=== PATIENT | male | born 1940 ===

== ENCOUNTER 2016-09-27 10:11 | Emergency (ER) | payer MEDICARE ==
[2016-09-27 10:35] VITALS: BMI 41.0
[2016-09-27 10:36] VITALS: BP 115/70; PULSE 62; RESP 18; TEMP 98.4; O2SAT 98
[2016-09-27] MEDS ORDERED: Tmp-Smz 800 mg-160 mg DS Tab PO STA (10:51)
--- NOTE | 2016-09-27 10:54 | C.PDOC ---
History Of Present Illness 76 yr old male with PMHx of HTN and diabetes, presents to the ER with right> left eye lid swelling for the past 1 week. Patient attributes it to "sweeping the floor". Patient denies fever, vision changes, headache or rash. Time Seen by Provider: 09/27/16 10:45 Chief Complaint (Nursing): ENT Problem History Per: Patient History/Exam Limitations: no limitations Onset/Duration Of Symptoms: Days (1 week) Injury To Eye?: No Past Medical History Reviewed: Historical Data, Nursing Documentation, Vital Signs Vital Signs: Last Vital Signs Temp 98.4 F 09/27/16 10:36 Pulse 62 09/27/16 10:36 Resp 18 09/27/16 10:36 BP 115/70 09/27/16 10:36 Pulse Ox 98 09/27/16 10:55 - Medical History PMH: CHF, Diabetes, HTN, Hypercholesterolemia Surgical History: CABG (triple bypass 2004), Coronary Stent Family History: States: No Known Family Hx - Social History Hx Tobacco Use: No Hx Alcohol Use: No Hx Substance Use: No - Immunization History Hx Tetanus Toxoid Vaccination: Yes Hx Influenza Vaccination: Yes Hx Pneumococcal Vaccination: Yes Review Of Systems Except As Marked, All Systems Reviewed And Found Negative. Constitutional: Negative for: Fever Eyes: Positive for: Other (Right>Left eye lid swelling ). Negative for: Vision Change Skin: Negative for: Rash Neurological: Negative for: Headache Physical Exam - Physical Exam Appears: Well, Non-toxic, No Acute Distress Skin: Warm, Dry, No Rash Head: Atraumatic, Normacephalic Eye(s): bilateral: Other (No conjuntivial erythema. Right Eyelid - Mild erythema and swelling. Left Eyelid - Minimal erythema and swelling. No pain with extraocular movements. ) Chest: Symmetrical, No Tenderness Cardiovascular: Rhythm Regular, No Murmur Respiratory: Normal Breath Sounds, No Rales, No Rhonchi, No Stridor, No Wheezing Extremity: Normal ROM, No Swelling Neurological/Psych: Oriented x3, Normal Speech ED Course And Treatment O2 Sat by Pulse Oximetry: 98 Medical Decision Making Medical Decision Making: PLAN: * Bactrim PO eomi, no pain with eye movement conjuctiva clear. no clinical concern for orbital extention. advise out pt f/u and return precautions Disposition - Disposition Referrals: Angel Avilez [Staff Provider] - Dre Culver MD [Staff Provider] - Disposition: HOME/ ROUTINE Disposition Time: 11:00 Condition: STABLE Additional Instructions: please see specialist. return to er with worsening symptoms or concerns. Prescriptions: Sulfamethoxazole/Trimethoprim [Bactrim DS 800 mg-160 mg] 1 tab PO BID #14 tab Instructions: Periorbital Cellulitis in Adults (ED) - Clinical Impression Clinical Impression: Periorbital cellulitis - Scribe Statement The provider has reviewed the documentation as recorded by the Ruben Ornelas Provider Attestation: All medical record entries made by the Ruben were at my direction and personally dictated by me. I have reviewed the chart and agree that the record accurately reflects my personal performance of the history, physical exam, medical decision making, and the department course for this patient. I have also personally directed, reviewed, and agree with the discharge instructions and disposition.
[2016-09-27] MEDS ORDERED: Tmp-Smz 800 mg-160 mg DS Tab ONE (10:56)
== END 2016-09-27 10:57 | disposition home or self-care (01) ==
LOC: C.ER 10:11
DX: L03.213 Periorbital cellulitis (principal)

== ENCOUNTER 2017-07-16 07:31 | Day surgery (SDC) | payer MEDICARE ==
[2017-07-16 07:58] VITALS: BMI 41.3
[2017-07-16 08:26] VITALS: O2SAT 100
[2017-07-16] MEDS ORDERED: Lactated Ringer's 1,000 ML IV ONE (10:05)
[2017-07-16] MEDS ORDERED: Propofol 10 mg/ml Inj (20 ML) ONE (10:11)
[2017-07-16 11:03] VITALS: TEMP 97.9
[2017-07-16 11:41] VITALS: BP 146/68; PULSE 72; RESP 13
== END 2017-07-16 11:50 | disposition home or self-care (01) ==
LOC: C.ENDO 07:31
PROVIDERS: ATTEND Internal Medicine Gastroenterology
DX: Z12.11 Encounter for screening for malignant neoplasm of colon (principal); D12.0 Benign neoplasm of cecum; D12.2 Benign neoplasm of ascending colon; D12.3 Benign neoplasm of transverse colon; D12.4 Benign neoplasm of descending colon; D12.5 Benign neoplasm of sigmoid colon; K62.1 Rectal polyp; I10 Essential (primary) hypertension; I25.10 Atherosclerotic heart disease of native coronary artery without angina pectoris; E11.9 Type 2 diabetes mellitus without complications
CPT/HCPCS: 45380; 45385; 82948; 88305; J2704; J7120